=== PATIENT | male | born 1985 | race Caucasian/White ===

== ENCOUNTER 2021-12-10 08:47 | Outpatient (CLI) | payer OTHER, SELFPAY ==
[2021-12-10 20:11] LABS: Alanine Aminotransferase 17 U/L (6-50); Albumin Level 4.7 g/dL (3.5-5.1); Alkaline Phosphatase 60 U/L (38-126); Anion Gap 12 mmol/L (8-16); Aspartate Amino Transferase 23 U/L (17-59); Bilirubin,Total 0.5 mg/dL (0.2-1.3); Blood Urea Nitrogen 13 mg/dL (9-20); Calcium 9.1 mg/dL (8.4-10.2); Carbon Dioxide 27 mmol/L (22-30); Chloride 101 mmol/L (98-107); Cholesterol 166 mg/dL (0-200); Estimated Glomerular Filt Rate > 60; Glucose 91 mg/dL (65-110); HDL Direct 38 mg/dL; Sodium 140 mmol/L (137-145); Triglycerides 133 mg/dL (<150)
[2021-12-10 20:26] LABS: LDL Cholesterol Direct 106 mg/dL
== END 2021-12-10 08:48 | disposition home or self-care (01) ==
LOC: ANHGOSHLAB 08:49
PROVIDERS: PCP Family Medicine; Visit Provider Family Medicine
DX: Z13.228 Encounter for screening for other metabolic disorders (principal); Z13.220 Encounter for screening for lipoid disorders
CPT/HCPCS: 36415; 80053; 80061

== ENCOUNTER 2023-07-28 14:17 | Outpatient (CLI) | payer OTHER, SELFPAY ==
[2023-07-28 20:24] LABS: Alanine Aminotransferase 31 U/L (6-50); Albumin Level 4.7 g/dL (3.5-5.1); Alkaline Phosphatase 63 U/L (38-126); Anion Gap 6 mmol/L (4-12); Aspartate Amino Transferase 38 U/L (17-59); Bilirubin,Total 0.5 mg/dL (0.2-1.3); Blood Urea Nitrogen 16 mg/dL (9-20); Calcium 9.3 mg/dL (8.4-10.2); Carbon Dioxide 30 mmol/L (22-30); Chloride 104 mmol/L (98-107); Cholesterol 179 mg/dL (0-200); Estimated Glomerular Filt Rate > 60; Glucose 89 mg/dL (65-110); HDL Direct 35 mg/dL; Potassium 3.9 mmol/L (3.4-5.0); Sodium 140 mmol/L (137-145); Triglycerides 192 mg/dL (<150)
[2023-07-28 20:35] LABS: LDL Cholesterol Direct 116 mg/dL
== END 2023-07-28 14:18 | disposition home or self-care (01) ==
LOC: ANHGOSHLAB 14:18
PROVIDERS: PCP Family Medicine; Visit Provider Family Medicine
DX: Z13.220 Encounter for screening for lipoid disorders (principal); Z13.228 Encounter for screening for other metabolic disorders
CPT/HCPCS: 36415; 80053; 80061

== ENCOUNTER 2023-07-28 14:25 | Outpatient (CLI) | payer OTHER, SELFPAY ==
--- NOTE | ~2023-07-28 | XR_ITS ---
EXAM: XR lumbar spine min 4V DATE: 07/28/2023 14:42 HISTORY: M54.50 - Low back pain, unspecified . COMPARISON: 05/23/2015. FINDINGS: 5 nonrib-bearing lumbar-type vertebral bodies. Pedicles intact. No pars defect. 3 mm retro listhesis at L5-S1. Vertebral body heights preserved. Mild disc space narrowing at L4-5 and L5-S1. Mi ld facet narrowing and sclerosis at L5-S1. No fracture or dislocation. IMPRESSION: Grade 1 retrolisthesis at L5-S1. Mild degenerative disc disease at L4-5 and L5-S1. Mild f acet arthropathy at L5-S1. Reviewed, dictated and finalized at location K. IMPRESSION: Grade 1 retrolisthesis at L5-S1. Mild degenerative disc disease at L4-5 and L5-S1. Mild facet arthropathy at L5-S1.
== END 2023-07-28 14:26 ==
LOC: GOSHIMG 14:26
PROVIDERS: PCP Family Medicine; Visit Provider Family Medicine
DX: M43.17 Spondylolisthesis, lumbosacral region (principal); M51.36 Other intervertebral disc degeneration, lumbar region; M51.37 Other intervertebral disc degeneration, lumbosacral region; M47.897 Other spondylosis, lumbosacral region
CPT/HCPCS: 72110